=== PATIENT | female | born 1935 | race Caucasian/White ===

== ENCOUNTER 2021-04-05 01:39 | Inpatient (IN) | payer MEDICARE, BC ==
[~2021-04-05] VITALS: Ht 160 cm; Wt 67.1 kg
--- NOTE | 2021-04-05 01:50 | NUR ---
PT BIB [facility] FROM [facility], PLACED ON 5150 FOR DTO/GD. A/O X1-2, CALM COOPERATIVE. NO SOB OR LABORED BREATHING, AFEBRILE.
--- NOTE | 2021-04-05 01:55 | NUR ---
DR. KIM AT BEDSIDE, MSE IN PROGRESS.
[2021-04-05] MEDS ORDERED: ACET-2154 PO (02:00)
[2021-04-05] MEDS ORDERED: OLAN5TAB3 PO (02:00)
[2021-04-05] MEDS ORDERED: HYDR-3972 PO (02:00)
[2021-04-05] MEDS ORDERED: ZIPR20CA2 IM (02:01)
[2021-04-05] MEDS ORDERED: POLY17PO4 PO (02:01)
--- NOTE | 2021-04-05 02:35 | NUR ---
GAVE REPORT TO PRECILLA IN U.
--- NOTE | 2021-04-05 02:45 | NUR ---
Pt. admitted to [facility] ROOM 139A , under care of Dr. JULIAN DODSON AND DR. FULTON Dx: psychosis, 5150 hold GD/DTO. Belongs List completed
--- NOTE | 2021-04-05 05:08 | NUR ---
Admit Note: Patient is an 85 yr old female admitted to [facility] on a 5150 for Danger to others and Grave Disability placed by a clinician requested at [facility] after patient arrived to ER with increased anxiety and agitation. Upon assessment per hold patient was alert however was unable to speak in a coherent manner. Patient arrived to unit via gurney, bizarre affect, disheveled and unkempt. Patient was soiled, alert and did not make sense when nurse attempted to conduct admitting interview. Psychiatrist and physician notified, plan of care formulated, safety precautions in place. Patients rights handbook provided per protocol.
[2021-04-05] MEDS ORDERED: MAG HYDROX/AL HYDROX/SIMETH 30 ML LIQUID UDC PO PRN (05:15)
[2021-04-05] MEDS ORDERED: MAGNESIUM HYDROXIDE 30 ML LIQUID UDC PO PRN (05:15)
[2021-04-05] MEDS ORDERED: ACETAMINOPHEN 325 MG TABLET PO PRN (05:15)
[2021-04-05 05:28] VITALS: BP 126/62
[2021-04-05 07:30] VITALS: BP 129/72
--- NOTE | 2021-04-05 08:17 | NUR ---
FIREARMS REPORT: [employer] completed and submitted a [employer] firearms report for 5150 grave disability certification. A copy of report has been placed in patient chart.
--- NOTE | 2021-04-05 09:27 | NUR ---
BRANDEN Initial DIscharge Plan: Patient lives at home [address] [place] [address]; ([phone]). BRANDEN attempted to contact patient's Sandoval ([phone]) and left a voicemail in regards to treatment and discharge plan. BRANDEN will work with MD and family to coordinate proper discharge.
--- NOTE | 2021-04-05 09:28 | NUR ---
Treatment Plan: Pt unable to sign treatment plan due to confusion.
[2021-04-05] MEDS ORDERED: OLANZAPINE 5 MG TABLET PO PRN (09:45)
--- NOTE | 2021-04-05 12:04 | NUR ---
BRANDEN Family Contact: BRANDEN spoke with patient's son Deon ([phone]) who stated that pt has been uncontrollable at home and has be declining. He stated that his father is unable to take care of her at the moment. He reported that he does not live in the area and is deciding to move in with his parents to help them. BRANDEN discussed treatment and discharge plan and son would want pt to transition to a nursing facility in the time being. BRANDEN will work with the family and MD to coordinate this.
[2021-04-05] MEDS: OLANZAPINE 2.5 MG TABLET PO SCH ×3 (13:00→17:20)
[2021-04-05] MEDS: CEphaleXIN 500 MG CAPSULE PO SCH ×2 (14:37→17:20)
[2021-04-05 15:31] VITALS: BP 116/79
[2021-04-05] MEDS ORDERED: MIRALAX 17 GM POWD.PACK PO PRN (18:45)
--- NOTE | 2021-04-05 19:00 | NUR ---
RECEIVED PATIENT IN THE HALLWAY SITTING IN A KARYN CHAIR. SHE IS NOTED CONFUSED, DISORGANIZED SPEECH, TANGENTAL. PT IS UNABLE TO HAVE A MEANINGFUL CONVERSATION WITH THIS ENGRAVER TIRE MOLD. NO AGGRESSIVE/COMBATIVE BX NOTED AT THIS TIME. PATIENT IS PROVIDED WITH PO FLUIDS AND SNACKS. SAFETY AND FALL PRECAUTION IN PLACE. WILL CONTINUE TO MONITOR.
[2021-04-05 20:00] VITALS: BP 128/74
[2021-04-05] MEDS: TEMAZEPAM 7.5 MG CAPSULE PO PRN (22:10)
[2021-04-06] MEDS: LORAZEPAM 0.5 MG TABLET PO PRN (04:25)
[2021-04-06 07:30] VITALS: BP 116/65
[2021-04-06] MEDS: CEphaleXIN 500 MG CAPSULE PO SCH ×4 (08:44→17:48)
[2021-04-06] MEDS: OLANZAPINE 2.5 MG TABLET PO SCH ×4 (08:44→17:48)
[2021-04-06] MEDS ORDERED: MIRALAX 17 GM POWD.PACK PO SCH (09:00)
--- NOTE | 2021-04-06 09:00 | NUR ---
Patient asleep, unable to take medication
--- NOTE | 2021-04-06 09:00 | NUR ---
Patient asleep, unable to take medication
--- NOTE | 2021-04-06 10:21 | NUR ---
BRANDEN SNF Referral: BRANDEN faxed patient's referral to [facility] (F: [phone]) attention to Horacio.
--- NOTE | 2021-04-06 13:00 | NUR ---
Patient still drowsy, arousable, able to take medication but couldn't stay awake
[2021-04-06 15:04] LABS: HEMATOCRIT 39.7 % (31.2-41.9); MEAN CORPUSCULAR HEMOGLOBIN 30.1 uug (24.7-32.8); MEAN CORPUSCULAR VOLUME 91.9 fL (75.5-95.3); PLATELET COUNT (AUTO) 276 K/uL (179-408)
[2021-04-06 15:15] LABS: BILIRUBIN,TOTAL 0.9 mg/dL (0.2-1.0); CREATININE 0.9 mg/dL (0.6-1.3); TOTAL PROTEIN, SERUM 7.4 g/dL (6.4-8.2)
[2021-04-06 15:21] LABS: THYROID STIMULATING HORMONE 3.906 mIU/mL (0.358-3.740)
[2021-04-06 15:40] LABS: MAGNESIUM 2.3 mg/dL (1.8-2.4)
[2021-04-06 17:05] VITALS: BP 109/59
--- NOTE | 2021-04-06 18:36 | NUR ---
Fully awake, alert, oriented to name. Assisted with dinner, able to eat 50% of meal served. Compliant with taking medications whole.
[2021-04-06 20:08] VITALS: BP 118/65
[2021-04-06] MEDS: TEMAZEPAM 7.5 MG CAPSULE PO PRN (23:47)
--- NOTE | 2021-04-07 04:55 | NUR ---
PATIENT AWAKE BUT WITH CONFUSION, UNABLE TO MAKE NEEDS KNOWN, STAYED IN BED, TRIES GET OUT OF BED, UNABLE TO SLEEP GIVEN SLEEPING MEDS ORDERED WITH EFFECTIVE RESULTS, CONT TO MONITOR.
[2021-04-07 07:30] VITALS: BP 133/81
[2021-04-07] MEDS: CEphaleXIN 500 MG CAPSULE PO SCH ×3 (08:49→16:03)
[2021-04-07] MEDS: OLANZAPINE 2.5 MG TABLET PO SCH ×3 (08:50→16:03)
--- NOTE | 2021-04-07 09:48 | NUR ---
Received patient sitting on the Carie chair by the hallway, verbally responsive. Alert and oriented x 1 with no s/s of distress. All due meds given per MD order and tolerated well. Kept skin clean and dry. Able to eat her breakfast with RULING TECHNICIAN's assistance. Patient eats her food using her hands instead of utensils. All needs met in a timely manner.
[2021-04-07] MEDS: LORAZEPAM 0.5 MG TABLET PO PRN (11:18)
[2021-04-07 16:00] VITALS: BP 105/68
[2021-04-07 20:00] VITALS: BP 103/61
[2021-04-07] MEDS: TEMAZEPAM 7.5 MG CAPSULE PO PRN (22:27)
[2021-04-08 07:30] VITALS: BP 104/77
[2021-04-08] MEDS: CEphaleXIN 500 MG CAPSULE PO SCH ×3 (08:50→16:18)
[2021-04-08] MEDS: OLANZAPINE 2.5 MG TABLET PO SCH ×3 (08:50→16:18)
--- NOTE | 2021-04-08 10:00 | NUR ---
received to care, up in john chair at nurses station. remains confused and disoriented. compliant with care. food and fluids given by staff. compliant with medications, but needs coaxing to take. no aggressive behavior, but remains agitated, at times. no distress noted. will continue to monitor closely.
[2021-04-08 16:00] VITALS: BP 128/80
[2021-04-08 20:00] VITALS: BP 115/78
[2021-04-08] MEDS: LORAZEPAM 0.5 MG TABLET PO PRN (20:35)
[2021-04-08] MEDS: TEMAZEPAM 7.5 MG CAPSULE PO PRN (21:30)
--- NOTE | 2021-04-09 06:48 | NUR ---
GPS: Pt.slept for 6 hrs.last night. Confused,disoriented and disorganized. Poor insight to present situation. Fall precautions observed. Re-directed prn.
[2021-04-09 07:46] VITALS: BP 127/48
[2021-04-09] MEDS: OLANZAPINE 2.5 MG TABLET PO SCH ×3 (08:24→16:59)
[2021-04-09] MEDS: CEphaleXIN 500 MG CAPSULE PO SCH ×3 (08:24→16:59)
[2021-04-09 16:09] VITALS: BP 126/84
--- NOTE | 2021-04-09 17:59 | NUR ---
received Patient still drowsy, arousable, able to take medication ,on ATB for UTI.assisted patient up to john-chair .able to uses FWW and min.assisted.
[2021-04-09 20:20] VITALS: BP 124/78
[2021-04-09] MEDS: TEMAZEPAM 7.5 MG CAPSULE PO PRN (21:02)
[2021-04-09] MEDS: LORAZEPAM 0.5 MG TABLET PO PRN (23:41)
--- NOTE | 2021-04-10 06:41 | NUR ---
GPS: Pt.slept for only 3.15 last night despite receiving Restoril 7.5 mg for insomnia. Remains confused,disoriented and disorganized. Frequently talking non-sensical. Reality re-orientation provided prn. Fall precautions observed. Fluids encouraged and pavel.well.
[2021-04-10 07:30] VITALS: BP 131/83
[2021-04-10] MEDS: OLANZAPINE 2.5 MG TABLET PO SCH ×4 (08:35→20:15)
[2021-04-10] MEDS: CEphaleXIN 500 MG CAPSULE PO SCH ×2 (08:36→12:49)
--- NOTE | 2021-04-10 10:02 | NUR ---
Court Hearing: Patients court hearing for 5250 was today and it was upheld for GD.
--- NOTE | 2021-04-10 15:25 | NUR ---
patient is confused and disoriented alert to her name only, up Carie-chair assisted to all ADLS,no s/s of pain or discomfort. on ATB therapy for UTI .
[2021-04-10 15:26] VITALS: BP 114/68
[2021-04-10] MEDS: TEMAZEPAM 7.5 MG CAPSULE PO PRN (20:44)
[2021-04-10 20:48] VITALS: BP 136/79
[2021-04-10] MEDS: LORAZEPAM 0.5 MG TABLET PO PRN (21:48)
--- NOTE | 2021-04-10 21:49 | NUR ---
GPS: Remains awake and restless. Restoril given earlier was ineffective. Pt.is confused,disoriented. Poor insight to present situation. Denied pain when asked. Denied need to use the toilet at this time. Quiet environment provided to facilitate sleep. Re-directed prn. Ativan 0.5mg given PO for increased anxiety/restlessness. Will continue to monitor.
[2021-04-11 07:30] VITALS: BP 128/72
[2021-04-11 08:08] LABS: HEMATOCRIT 35.8 % (31.2-41.9); MEAN CORPUSCULAR HEMOGLOBIN 30.8 uug (24.7-32.8); PLATELET COUNT (AUTO) 235 K/uL (179-408)
[2021-04-11 08:19] LABS: CREATININE 0.9 mg/dL (0.6-1.3); MAGNESIUM 2.3 mg/dL (1.8-2.4); PHOSPHOROUS 3.4 mg/dL (2.5-4.9)
[2021-04-11] MEDS: OLANZAPINE 2.5 MG TABLET PO SCH ×3 (08:42→20:52)
[2021-04-11] MEDS: ENSURE ENLIVE (VAN) 240 ML LIQUID PO SCH (08:43)
--- NOTE | 2021-04-11 09:00 | NUR ---
Received report from night RN. Pt is in room, resting in bed, a/o x 1. prt cooperative with medication and care. Pt speaks to self, intermittently sleeping, arousable with light touch and voice command. will continue to monitor.
[2021-04-11 16:00] VITALS: BP 110/61
--- NOTE | 2021-04-11 20:05 | NUR ---
RECEIVED PATIENT IN THE HALLWAY SITTING IN A RECLINING CHAIR. SHE IS NOTED A/O X 1. SHE IS FORGETFUL, NONSENSICAL UNABLE TO HAVE A MEANINGFUL CONVERSATION WITH THIS APPLICATION OPERATIONS ENGINEER. AFFECT IS FLAT MOOD IS IRRITABLE. PATIENT NOTED RESTLESS, YELLING AT TIME AND AGITATED. ATIVAN 0.5 MG WAS GIVEN. PO FLUIDS AND SNACKS WERE ALSO GIVEN. V/S STABLE, SAFETY AND FALL PRECAUTION IN PLACE. WILL CONTINUE TO MONITOR.
[2021-04-11] MEDS: LORAZEPAM 0.5 MG TABLET PO PRN (20:08)
[2021-04-11] MEDS: TEMAZEPAM 7.5 MG CAPSULE PO PRN (21:37)
[2021-04-11 22:02] VITALS: BP 125/71
[2021-04-12] MEDS: LORAZEPAM 0.5 MG TABLET PO PRN ×2 (02:39→21:52)
--- NOTE | 2021-04-12 02:43 | NUR ---
PATIENT NOTED TALKING TO HERSELF. SHE IS RESTLESS AND UNABLE TO FALL ASLEEP. TEMAZEPAM WAS GIVEN ABOUT 2 AND 1/2 HR AGO BUT ONLY EFFECT FOR AN HOUR. ATIVAN 0.5 MG PO PRN WAS GIVEN. WILL CONTINUE TO MONITOR/
--- NOTE | 2021-04-12 07:25 | NUR ---
patient slept for approx 4.00 hrs through the night. she was noted talking to herself on-and-off. Noted irritable while morning care and ADLs. will continue to monitor.
[2021-04-12 07:30] VITALS: BP 152/99
[2021-04-12] MEDS: OLANZAPINE 2.5 MG TABLET PO SCH ×3 (08:49→20:19)
[2021-04-12] MEDS: ENSURE ENLIVE (VAN) 240 ML LIQUID PO SCH (09:38)
[2021-04-12 17:06] VITALS: BP 132/73
[2021-04-12 19:55] VITALS: BP 146/76
--- NOTE | 2021-04-12 20:00 | NUR ---
RECEIVED PATIENT IN HER ROOM IN BED ASLEEP, BUT SHE IS EASILY AROUSABLE. PATIENT IS A POOR HISTORIAN, V/S STABLE. SAFETY AND FALL PRECAUTION IN PLACE. PO FLUIDS AND SNACKS ARE PROVIDED. WILL CONTINUE TO MONITOR.
--- NOTE | 2021-04-12 21:00 | NUR ---
RECEIVED PATIENT IN HER ROOM IN BED. SHE IS NOTED AWAKE, CONFUSED, DISORGANIZED SPEECH, TALKING TO HERSELF, NONSENSICAL, FIDGETING AND RESPONDING TO INTERNAL STIMULI. PATIENT IS UNABLE TO HAVE A CONVERSATION WITH THIS TOBACCO SWEEPER. V/S STABLE, SAFETY AND FALL PRECAUTION ARE IN PLACE. PATIENT IS GIVEN PO FLUIDS AND SNACKS. SHE IS COMPLIANT WITH MEDICATION REGIMENT AT THIS TIME. WILL CONTINUE TO MONITOR.
--- NOTE | 2021-04-12 22:00 | NUR ---
PATIENT NOTED RESTLESS, FIDGETING, TALKING TO HERSELF AND SHE IS SOMEWHAT DIFFICULT WHEN GIVEN ADLs AND SKIN AND MESHA CARE. ATIVAN 0.5 MG PO PRN WAS GIVEN FOR ANXIETY. WILL CONTINUE TO MONITOR.
[2021-04-12] MEDS: TEMAZEPAM 7.5 MG CAPSULE PO PRN (23:16)
--- NOTE | 2021-04-12 23:16 | NUR ---
patient noted restless, unable to fall asleep. temazepam 7.5 mg po prn was given. will continue to monitor,
[2021-04-13] MEDS: OLANZAPINE 2.5 MG TABLET PO PRN (00:49)
--- NOTE | 2021-04-13 00:50 | NUR ---
patient noted talking to herself, fidgeting, reaching for things that are not there. Zyprexa 2.5 mg PO PRN given, will continue to monitor
[2021-04-13] MEDS: LORAZEPAM 0.5 MG TABLET PO PRN ×2 (04:23→21:36)
--- NOTE | 2021-04-13 06:31 | NUR ---
PATIENT SLEPT FOR APPROX .30 MIN THROUGH THE NIGHT. SHE WAS NOTED FIDGETING ON-AND OFF THROUGHOUT THE NIGHT AND TALKING TO HERSELF. WILL [id number] TO MONITOR.
[2021-04-13 07:30] VITALS: BP 142/70
[2021-04-13] MEDS: OLANZAPINE 2.5 MG TABLET PO SCH ×3 (09:00→21:36)
[2021-04-13] MEDS: ENSURE ENLIVE (VAN) 240 ML LIQUID PO SCH (09:00)
--- NOTE | 2021-04-13 10:46 | NUR ---
GPS: pt did not sleep well last night, only 30 minutes per nurse report. today pt i still asleep. AM medication was not given.
[2021-04-13 16:15] LABS: HEMATOCRIT 39.7 % (31.2-41.9); MEAN CORPUSCULAR HEMOGLOBIN 30.3 uug (24.7-32.8); MEAN CORPUSCULAR VOLUME 92.3 fL (75.5-95.3); PLATELET COUNT (AUTO) 272 K/uL (179-408)
[2021-04-13 16:25] LABS: CREATININE 0.8 mg/dL (0.6-1.3); POTASSIUM 3.5 mmol/L (3.5-5.1); TOTAL PROTEIN, SERUM 7.3 g/dL (6.4-8.2)
[2021-04-13 16:35] VITALS: BP 126/61
[2021-04-13 20:08] VITALS: BP 119/83
[2021-04-13] MEDS: TEMAZEPAM 7.5 MG CAPSULE PO PRN (23:39)
[2021-04-14 08:38] VITALS: BP 118/56
[2021-04-14] MEDS: OLANZAPINE 2.5 MG TABLET PO SCH ×3 (08:39→20:00)
[2021-04-14] MEDS: ENSURE ENLIVE (VAN) 240 ML LIQUID PO SCH (08:39)
[2021-04-14 16:46] VITALS: BP 135/76
[2021-04-14 20:00] VITALS: BP 124/63
[2021-04-14] MEDS: LORAZEPAM 0.5 MG TABLET PO PRN (20:01)
[2021-04-15] MEDS: TEMAZEPAM 7.5 MG CAPSULE PO PRN ×2 (01:26→21:15)
[2021-04-15] MEDS: HYDROCODONE/APAP 5-325MG TABLET PO PRN ×2 (01:27→19:41)
--- NOTE | 2021-04-15 06:36 | NUR ---
Received Pt sitting in a john-chair in the hallway. Pt is alert and oriented to herself only, she is confused, disoriented, disorganized, and unable to process information. Pt is unable to engage in any meaningful conversation, and gives non-sensical answers to questions. Pt expresses word salad and presents with severe cognitive deficit. Pt was uncooperative with staff direction and appeared anxious, Ativan .5mg administered with minimal effect. Pt is so disorganized in her thought process, she is unable to identify or know what to do with food, water, or medications, and requires the assistance of staff. Meds were crushed and administered with applesauce with staff assistance. Later in the shift, Pt began screaming unprovoked, Roggen 5/325 and Restoril 7.5mg administered with good effect. Pt placed in bed and slept the rest of the shift. Snacks were consumed 100%. ADLs attended to, diaper changed, skin care provided. VS stable
[2021-04-15 08:22] VITALS: BP 108/67
[2021-04-15] MEDS: ENSURE ENLIVE (VAN) 240 ML LIQUID PO SCH (08:42)
[2021-04-15] MEDS: OLANZAPINE 2.5 MG TABLET PO SCH ×3 (08:42→20:05)
[2021-04-15 15:17] VITALS: BP 117/51
[2021-04-15] MEDS: LORAZEPAM 0.5 MG TABLET PO PRN (19:42)
[2021-04-15 19:59] VITALS: BP 101/64
[2021-04-16 08:00] VITALS: BP 131/45
--- NOTE | 2021-04-16 08:30 | NUR ---
Received report from second shift supervisor RN. pt is in room, sleeping. she is a/o x 1, confused. Pt is stable and calm at this time. Will continue to monitor.
[2021-04-16] MEDS: ENSURE ENLIVE (VAN) 240 ML LIQUID PO SCH ×3 (08:54→17:22)
[2021-04-16] MEDS: OLANZAPINE 2.5 MG TABLET PO SCH ×2 (08:56→20:25)
[2021-04-16 16:09] VITALS: BP 138/84
[2021-04-16 20:00] VITALS: BP 89/60
[2021-04-16 21:50] LABS: *BILIRUBIN,URIN NEGATIVE (NEGATIVE); *BLOOD, URINE NEGATIVE (NEGATIVE); *CLARITY,URINE CLEAR (CLEAR); *COLOR,URINE YELLOW (YELLOW); *KETONES,URINE NEGATIVE (NEGATIVE); *UROBILINOGEN,URINE 0.2 E.U./dl (NORMAL); LEUKOCYTE ESTERASE ,URINE NEGATIVE (NEGATIVE); NITRITE, URINE NEGATIVE (NEGATIVE); PH,URINE 5.5 (5.0-8.0); UGLUCOSE NEGATIVE (NEGATIVE)
[2021-04-16] MEDS: LORAZEPAM 0.5 MG TABLET PO PRN (23:27)
[2021-04-17] MEDS: TEMAZEPAM 7.5 MG CAPSULE PO PRN ×2 (00:10→23:30)
[2021-04-17] MEDS: OLANZAPINE 2.5 MG TABLET PO PRN (01:14)
--- NOTE | 2021-04-17 01:14 | NUR ---
PATIENT NOTED AWAKE, UNABLE TO FALL ASLEEP. SHE IS NOTED SINGING AND TALKING TO HERSELF. ZYPREXA 2.5MG PO PRN WAS GIVEN FOR PSYCHOSIS. WILL CONTINUE TO MONITOR
[2021-04-17 07:30] VITALS: BP 103/75
[2021-04-17] MEDS: ENSURE ENLIVE (VAN) 240 ML LIQUID PO SCH ×3 (09:06→16:15)
[2021-04-17] MEDS: LORAZEPAM 0.5 MG TABLET PO PRN (13:59)
--- NOTE | 2021-04-17 13:59 | NUR ---
patient is wondering around and disturbing other patients.
[2021-04-17 15:08] VITALS: BP 97/63
--- NOTE | 2021-04-17 18:21 | NUR ---
Gps: Remain confused and disoriented. compliant with meds. assisted with adl's. continue plan of care.
[2021-04-17 20:01] VITALS: BP 108/76
[2021-04-17] MEDS: OLANZAPINE 2.5 MG TABLET PO SCH (20:01)
--- NOTE | 2021-04-17 21:00 | NUR ---
received patient in the hallway sitting in a chair. she is noted A/O x 1 confused and forgetful. she is calm and pleasant upon approached. patient is a poor historian, unable to performed ADLs of complex task. she required redirection and reorientations.V/S stable. she is given PO fluids and snacks. safety and fall precaution in place. will continue to monitor,
--- NOTE | 2021-04-18 06:47 | NUR ---
PATIENT SLEPT FOR APPROX 5.30 HRS THROUGH THE NIGHT. SHE IS NOTED LESS IRRITABLE. TALKING TO HERSELF AT TIMES. WILL CONTINUE TO MONITOR,
[2021-04-18 07:30] VITALS: BP 119/71
--- NOTE | 2021-04-18 07:30 | NUR ---
Received patient awake, alert/oriented. requires reorientation V/S stable. safety and fall precaution in place. Denies SI. will continue to monitor.
[2021-04-18] MEDS: ENSURE ENLIVE (VAN) 240 ML LIQUID PO SCH ×3 (08:19→16:56)
--- NOTE | 2021-04-18 11:31 | NUR ---
Assisted 2 PETROGRAPHER with changing. Patient was screaming. Denies pain. She stayed calm and quiet after changing. Turned and reposition. Will continue to monitor.
[2021-04-18] MEDS: HYDROCODONE/APAP 5-325MG TABLET PO PRN (12:34)
[2021-04-18] MEDS: DIVALPROEX SPRINKLE 125 MG CAP.SPRINK PO SCH ×2 (12:49→16:56)
[2021-04-18] MEDS ORDERED: busPIRone 5 MG TABLET PO SCH (13:00)
--- NOTE | 2021-04-18 14:33 | NUR ---
MD order COVID test, done and sent to the lab.
[2021-04-18 16:00] VITALS: BP 119/65
--- NOTE | 2021-04-18 18:22 | NUR ---
Patient is a feeder, aspiration precaution maintained. Given PRN pain medication as ordered. She was noted with screaming during transfer to john chair. She remained calm and rested. Updated Dr. Rowland of patients status. Denies SI. No distress identified during the shift. Kept safe and frequent checks done. All due med given as ordered. Will endorse to the next shift for continuity of care
[2021-04-18] MEDS: OLANZAPINE 2.5 MG TABLET PO SCH (20:39)
[2021-04-18 21:04] VITALS: BP 113/65
--- NOTE | 2021-04-19 05:51 | NUR ---
Pt asleep at this time, no s/s of distress. No c/o pain during the shift. Confused, some agitation and yelling observed at the start of shift. Redirected and reoriented to reality. Cooperative with care, compliant with meds. Safety precautions in place. Q15 min checks done to ensure safety.
[2021-04-19 07:30] VITALS: BP 111/63
--- NOTE | 2021-04-19 07:30 | NUR ---
Patient is alert, Reoriented to the room, encouraged activity. Will continue to monitor for safety
[2021-04-19] MEDS: DIVALPROEX SPRINKLE 125 MG CAP.SPRINK PO SCH (08:28)
[2021-04-19] MEDS: ENSURE ENLIVE (VAN) 240 ML LIQUID PO SCH ×2 (08:28→13:03)
--- NOTE | 2021-04-19 08:31 | NUR ---
SW Discharge Note: Patient will be discharged to a locked usp facility to [facility] [id number] [place] [id number]; ([phone]) via ambulance transportation at 12PM. Butadiene Converter Operator spoke with Katy, Ground Control Approach Technician at [facility]; ([phone]), who stated patient will be accepted at facility today. Patient is alert and oriented x2 and is not able to plan for self-care at this time but is willing to accept care provided for her at the facility. Patient denies any suicidal or homicidal ideations. Patient is aware and agreeable with discharge plans. Patients Sandoval ([phone]) is aware of patients discharge plan. Patient will continue to follow-up with her Psychiatrist Dr. Montes and Motor Man Dr. Bauer. Patient presents with euthymic mood and congruent affect.
--- NOTE | 2021-04-19 13:50 | NUR ---
Skin intact, no breakdown identified upon discharged. Report given to JEMAL Villegas from [facility]. Report given to [facility] EMT
--- NOTE | 2021-04-19 13:50 | NUR ---
Discharged patient to locked snf facility to [address] [address]; ([phone]). Patient was picked up by [facility] via gurney with 2 clay roaster. Patient's belongings and valuables inventoried and returned to the patient. Patient's discharge packet includes dc prescription, continuing orders, and plan of care given to ANA Bang. report called to JEMAL Villegas of [facility]. Patient escorted off unit in stable condition with no adverse event by nursing staff.
[2021-04-19] MEDS ORDERED: DIVALPROEX SPRINKLE 125 MG CAP.SPRINK PO SCH (17:00)
== END 2021-04-19 13:50 | DRG 885 ==
LOC: ER 01:47 → UNDOADMIN 02:30 → GPS 02:30 → ER 02:44 → GPS 04-13 23:27
PROVIDERS: ADMIT Psychiatry & Neurology Psychosomatic Medicine; ATTEND Internal Medicine
DX: F29 Unspecified psychosis not due to a substance or known physiological condition (principal); F01.51 Vascular dementia, unspecified severity, with behavioral disturbance; E87.0 Hyperosmolality and hypernatremia; F23 Brief psychotic disorder; F03.90 Unspecified dementia, unspecified severity, without behavioral disturbance, psychotic disturbance, mood disturbance, and anxiety; E78.5 Hyperlipidemia, unspecified; Z20.822 Contact with and (suspected) exposure to COVID-19; Z87.891 Personal history of nicotine dependence; Z87.440 Personal history of urinary (tract) infections; F25.9 Schizoaffective disorder, unspecified; E03.9 Hypothyroidism, unspecified; R03.0 Elevated blood-pressure reading, without diagnosis of hypertension
CPT/HCPCS: 36415; 83735; 84100; 84443; 85025; 87086; 97161; A4663; A6209